=== PATIENT | female | born 1950 | race Caucasian/White ===

== ENCOUNTER → 2017-10-11 | Outpatient (CLI) | payer MEDICARE, OTHER ==
--- NOTE | 2017-10-11 18:12 | Diagnostic Imaging Report ---
#[id number] - USBRECOMRT ULTRASOUND OF THE RIGHT BREAST : 10/11/2017 Comparison is made to exams dated: 10/11/2017 mammogram and 06/14/2017 mammogram - [facility]. Color flow and real-time ultrasound were performed on the entire right breast with scanning in all four quadrants, retroareolar region and the right axilla. There are multiple hypechoic masses throughout the right breast. Only the largest ones will be described. -At 12 o'clock 1 cm from the nipple there is a nodule measuring 0.9 x 0.5 x 1.0 cm -At 3 o'clock 1 cm from the nipple there is a nodule measuring 1.4 x 0.7 x 1.1 cm. -At 6 o'clock 3 cm from the nipple there is a nodule measuring 0.6 x 0.5 x 0.5 cm. -At 9 o'clock 2 cm from the nipple there is a nodule measuring 1.2 x 0.6 x 1.2 cm. -At 10 o'clock 1 cm from the nipple there is a nodule with associated calcifications measuring 0.8 x 0.4 x 1.0 cm. IMPRESSION: BENIGN Multiple too numerous to count hypoechoic nodules with overall a benign sonographic appearance. A 1 year screening mammogram is recommended. Martinez Ramos Jr., D.O. cw/:10/11/2017 14:16:55 Molding Machine Operator: ANALIA HARRIS, [facility] Ultrasound BI-RADS: 2 Benign
--- NOTE | 2017-10-11 18:12 | Diagnostic Imaging Report ---
#[id number] - USBRECOMLT ULTRASOUND OF THE LEFT BREAST : 10/11/2017 Comparison is made to exams dated: 10/11/2017 mammogram and 06/14/2017 mammogram - [facility]. Color flow and real-time ultrasound were performed on the entire left breast with scanning in all four quadrants, retroareolar region and the left axilla. There are multiple hypechoic masses throughout the left breast. Only the largest ones will be described. -At 1 o'clock 2 cm from the nipple there is a nodule measuring 1.5 x 0.6 x 1.1 cm. - At 2 o'clock 1 cm from the nipple there is a nodule with calcifications measuring 1.2 x 0.9 x 1.1 cm. -At 6 o'clock in the retroareolar region there is a nodule measuring 1.4 x 0.5 x 1.2 cm and an adjacent one measuring 0.5 x 0.4 x 0.5 cm. -At 9 o'clock 1 cm from the nipple there is a nodule measuring 1.2 x 0.6 x 1.2 cm. IMPRESSION: BENIGN Multiple too numerous to count hypoechoic nodules in the left breast with the largest described above. All nodules have a benign sonographic appearance. A 1 year screening mammogram is recommended. Martinez Ramos Jr., D.O. cw/:10/11/2017 14:07:52 Teacher Lip Reading: ANALIA HARRIS, [facility] Ultrasound BI-RADS: 2 Benign
--- NOTE | 2017-10-11 18:12 | Diagnostic Imaging Report ---
#[id number] - MGDXLT #UNILATERAL LEFT DIGITAL DIAGNOSTIC MAMMOGRAM WITH CAD: 10/11/2017 Comparison is made to exam dated: 06/14/2017 mammogram - [facility]. Current study contains 3 films. The tissue of the left breast is heterogeneously dense. This may lower the sensitivity of mammography. Current study was also evaluated with a Computer Aided Detection (CAD) system. There are multiple masses identifed in the left breast. Some are larger and some have associated calcifications. Vascular calcification is present. Stable scattered calcification is noted. No significant masses, calcifications, or other findings are seen in the breast. IMPRESSION: INCOMPLETE: NEEDS ADDITIONAL IMAGING EVALUATION Multiple masses noted in the left breast are likely benign. Per the physician's order bilateral breast ultrasound will be performed today. Martinez Ramos Jr., D.O. cw/:10/11/2017 13:17:13 Collar Tailor: Mary HARRIS(Janet)(Khadar), [facility] letter sent: Additional Imaging Needed Mammogram BI-RADS: 0 Indeterminate
== END ==
LOC: MAMMO 11:05
PROVIDERS: ATTEND Obstetrics & Gynecology
DX: N60.02 Solitary cyst of left breast (principal); N60.01 Solitary cyst of right breast

== ENCOUNTER → 2020-10-19 | Outpatient (CLI) | payer MEDICARE, OTHER ==
[~2020-10-19] MED LIST: COVID-19 VACC, MRNA(MODERNA)/PF 100 MCG/0.5 ML VIAL IM ONE
== END ==
LOC: VACCPMC 12:31
DX: Z23 Encounter for immunization (principal); Z20.822 Contact with and (suspected) exposure to COVID-19
CPT/HCPCS: 0011A; 91301

== ENCOUNTER → 2020-11-16 | Outpatient (CLI) | payer OTHER, BC, MEDICARE | END | disposition home or self-care (01) | LOC: VACCPMC 11:01 | DX: Z23 Encounter for immunization (principal); Z20.822 Contact with and (suspected) exposure to COVID-19 | CPT/HCPCS: 91301 ==

== ENCOUNTER → 2021-09-07 | Outpatient (CLI) | payer MEDICARE, OTHER | LOC: RAD 15:39 | DX: R07.81 Pleurodynia (principal) | CPT/HCPCS: 71111 ==

== ENCOUNTER → 2024-10-16 | Outpatient (REF) | payer MEDICARE, OTHER | LOC: RAD 14:01 | PROVIDERS: ATTEND Internal Medicine | DX: R60.1 Generalized edema (principal) | CPT/HCPCS: 93971 ==